=== PATIENT | male | born 1970 | race Caucasian/White ===

== ENCOUNTER → 2017-09-01 | Outpatient (CLI) | payer OTHER ==
[~2017-09-01] MED LIST: HYDR-971 PO
--- NOTE | 2017-09-01 17:31 | RAD ---
Ultrasound testicles INDICATION: Left testicular pain TECHNIQUE: Grayscale, color Doppler and spectral waveform ultrasound images of the bilateral testicles. COMPARISON: None FINDINGS: The right testicle measures 2.8 x 1.9 x 3.9 cm and is normal in echogenicity without focal lesion. Evidence of blood flow in the right testicle on Doppler interrogation. The right epididymis is mildly enlarged measuring 1.5 cm. Small right hydrocele. The left testicle measures 2.5 x 1.9 x 3.3 cm and is normal in echogenicity without focal lesion. Blood flow is seen in the left testicle on Doppler interrogation. The left epididymal head measures 1 cm and is within normal limits. IMPRESSION: 1. No testicular focal lesion. 2. Blood flow demonstrated to both testicles. 3. Small right hydrocele. Electronically signed by: Conrad Asencio DO (09/01/2017 5:28 PM) [facility]
== END | disposition home or self-care (01) ==
LOC: US 16:33
DX: N50.812 Left testicular pain (principal); N43.3 Hydrocele, unspecified
CPT/HCPCS: 76870

== ENCOUNTER 2017-10-05 14:34 | Emergency (ER) | payer OTHER, BC ==
[~2017-10-05] VITALS: Ht 172.7 cm; Wt 62.1 kg
[2017-10-05] MEDS ORDERED: oxyCODONE/APAP 5/325 1 TAB TABLET PO ONE (15:15)
[2017-10-05 15:19] LABS: BILIRUBIN,URINE SMALL (NEG); GLUCOSE,URINE NEGATIVE (NEG); NITRITE,URINE NEGATIVE (NEG); PROTEIN,URINE NEGATIVE (NEG-TRACE)
[2017-10-05 15:30] LABS: BACTERIA,URINE 0 /HPF (0-FEW); RBC,URINE 0 /HPF (0-2); WBC,URINE 0 /HPF (0-4)
[2017-10-05] MEDS: KETOROLAC 60 MG/2 ML INJ. IM ONE ×2 (15:41→15:45)
--- NOTE | 2017-10-05 15:55 | RAD ---
CT of the abdomen and pelvis without contrast 10/05/2017 Indication: Left flank and left groin pain. Comparison study: None Technique: Multidetector CT imaging of the abdomen and pelvis was performed without the administration of IV contrast Findings: Visualized lung bases are unremarkable. The liver, gallbladder, spleen, adrenal glands, and pancreas have an unremarkable noncontrast enhanced appearance. The bilateral kidneys have a grossly unremarkable noncontrast enhanced appearance without evidence of hydronephrosis, nephrolithiasis, or acute obstructive uropathy. The ureters are unremarkable in course and caliber without evidence of ureteral stone. The bladder is predominantly decompressed. No pneumoperitoneum or significant free pelvic fluid is identified. There is no evidence of bowel obstruction. No evidence of acute inflammatory change involving the bowel is identified. No inguinal hernia is identified. The appendix is grossly unremarkable in appearance. No evidence of acute osseous abnormality. Impression: No evidence of acute intra-abdominal abnormality PQRS Compliance Statement: One or more of the following individualized dose reduction techniques were utilized for this examination: 1. Automated exposure control 2. Adjustment of the mA and/or kV according to patient size 3. Use of iterative reconstruction technique
--- NOTE | 2017-10-05 16:01 | RAD ---
Scrotal ultrasound 10/05/2017 Clinical history: Left scrotal pain. Technique: Using a combination of real-time ultrasound imaging and color-flow and pulse Doppler imaging techniques, duplex evaluation of the scrotal sac and its contents was performed. Multiple images were obtained. Findings: Both testicles are within normal limits in size and echogenicity. The right testicle measures 3.9 x 2.5 x 1.7 cm in longitudinal, transverse, and AP dimensions. The left testicle measures 3.7 x 2.6 x 1.5 cm in size. Normal color flow and pulse Doppler imaging to both testicles is seen. Both epididymal heads are within normal limits in size and echogenicity. There is a small right hydrocele. No varicocele is seen. Impression: Small right hydrocele. Otherwise negative study.
[2017-10-05 16:08] VITALS: BP 149/80
--- NOTE | 2017-10-05 16:40 | PHYS DOC ---
Past Medical History Past Medical History: Other Additional Past Medical Histor: recent epiditimits Past Surgical History: No Surgical History Additional Information: 1 ppd Alcohol Use: Occasionally Drug Use: None Adult General Chief Complaint Chief Complaint: TESTICULAR PAIN OR INJURY [facility] Patient is a 46 year old male presenting to the emergency department for evaluation of left testicle pain that hit him suddenly while he was at work. He says it is a sharp pain and can radiate towards his but ox and lower left back that he has no weakness numbness tingling bowel or bladder incontinence. Patient says he had the same exact pain one month ago and was diagnosed with epididymitis and was put on antibiotics for a short period time. He does not remember which antibiotic he was on. He says that he is sexually active but he only has one partner. He denies any fevers chills nausea vomiting or other systemic symptoms. Review of Systems Review of Systems Constitutional: Denies fever or chills [] Cardiovascular: No additional information not addressed in [facility] [] GI: Denies abdominal pain, nausea, vomiting, bloody stools or diarrhea [] : Denies dysuria or hematuria [] Musculoskeletal: + back pain. No joint pain [] Integument: Denies rash or skin lesions [] Neurologic: Denies headache, focal weakness or sensory changes [] All other systems were reviewed and found to be within normal limits, except as documented in this note. Current Medications Current Medications Current Medications Medications (Trade) Dose Ordered Sig/[facility] Start Time Stop Time Status Last Admin Dose Admin Ketorolac Tromethamine (Toradol Im) 60 mg 1X ONCE 10/05/17 15:15 10/05/17 15:16 DC 10/05/17 15:45 60 MG Oxycodone/ Acetaminophen (Percocet 5/325) 2 tab 1X ONCE 10/05/17 15:15 10/05/17 15:16 DC Allergies Allergies Allergies Coded Allergies Type Severity Reaction Last Updated Verified No Known Allergies Allergy Unknown 10/05/17 Yes Physical Exam Physical Exam Constitutional: Well developed, well nourished, no acute distress, non-toxic appearance. [] Cardiovascular:Heart rate regular rhythm, no murmur [] Lungs & Thorax: Bilateral breath sounds clear to auscultation [] Abdomen: Bowel sounds normal, soft, no tenderness, no masses, no pulsatile masses. exam reveals left testicle tenderness to palpation with no obvious swelling. No obvious hernia palpated. Skin: Warm, dry, no erythema, no rash. [] Back: No tenderness, no CVA tenderness. [] Extremities: No tenderness, no cyanosis, no clubbing, ROM intact, no edema. [] Current Patient Data Vital Signs Vital Signs Date Time Temp Pulse Resp B/P (MAP) Pulse Ox O2 Delivery O2 Flow Rate FiO2 10/05/17 16:08 46 20 149/80 (103) 98 Room Air 10/05/17 14:48 98.0 98.0 Lab Values Laboratory Tests Test 10/05/17 15:13 Urine Collection Type Unknown Urine Color Yellow Urine Clarity Turbid Urine pH 6.0 Urine Specific [place] >=1.030 Urine Protein Negative mg/dL (NEG-TRACE) Urine Glucose (UA) Negative mg/dL (NEG) Urine Ketones (Stick) Negative mg/dL (NEG) Urine Blood Negative (NEG) Urine Nitrite Negative (NEG) Urine Bilirubin Small (NEG) Urine Urobilinogen Dipstick 1.0 mg/dL (0.2 mg/dL) Urine Leukocyte Esterase Negative (NEG) Urine RBC 0 /HPF (0-2) Urine WBC 0 /HPF (0-4) Urine Bacteria 0 /HPF (0-FEW) Urine Mucus Marked /LPF EKG EKG [] Radiology/Procedures Radiology/Procedures CT of the abdomen and pelvis without contrast 10/05/2017 Indication: Left flank and left groin pain. Comparison study: None Technique: Multidetector CT imaging of the abdomen and pelvis was performed without the administration of IV contrast Findings: Visualized lung bases are unremarkable. The liver, gallbladder, spleen, adrenal glands, and pancreas have an unremarkable noncontrast enhanced appearance. The bilateral kidneys have a grossly unremarkable noncontrast enhanced appearance without evidence of hydronephrosis, nephrolithiasis, or acute obstructive uropathy. The ureters are unremarkable in course and caliber without evidence of ureteral stone. The bladder is predominantly decompressed. No pneumoperitoneum or significant free pelvic fluid is identified. There is no evidence of bowel obstruction. No evidence of acute inflammatory change involving the bowel is identified. No inguinal hernia is identified. The appendix is grossly unremarkable in appearance. No evidence of acute osseous abnormality. Impression: No evidence of acute intra-abdominal abnormality PQRS Compliance Statement: One or more of the following individualized dose reduction techniques were utilized for this examination: 1. Automated exposure control 2. Adjustment of the mA and/or kV according to patient size 3. Use of iterative reconstruction technique DICTATED and SIGNED BY: PAXTON REARDON MD DATE: 10/05/171543 Scrotal ultrasound 10/05/2017 Clinical history: Left scrotal pain. Technique: Using a combination of real-time ultrasound imaging and color-flow and pulse Doppler imaging techniques, duplex evaluation of the scrotal sac and its contents was performed. Multiple images were obtained. Findings: Both testicles are within normal limits in size and echogenicity. The right testicle measures 3.9 x 2.5 x 1.7 cm in longitudinal, transverse, and AP dimensions. The left testicle measures 3.7 x 2.6 x 1.5 cm in size. Normal color flow and pulse Doppler imaging to both testicles is seen. Both epididymal heads are within normal limits in size and echogenicity. There is a small right hydrocele. No varicocele is seen. Impression: Small right hydrocele. Otherwise negative study. DICTATED and SIGNED BY: GINNA KHAN MD DATE: 10/05/17 4475 Course & Med Decision Making Course & Med Decision Making Intermittent torsion is a consideration however he has completely normal workup and he is essentially pain-free. Patient will be discharged with instructions to take ibuprofen for pain and [place] for breakthrough pain and follow with the urologist as soon as possible. Patient aware and agreeable with plan for discharge and verbalized understanding of the need for short-term follow-up in the strict ED return precautions discussed including worsening pain fevers vomiting or other general concerns. Dragon Disclaimer Dragon Disclaimer This electronic medical record was generated, in whole or in part, using a voice recognition dictation system. Departure Departure Impression: Primary Impression: Testicle pain Disposition: HOME, SELF-CARE Condition: STABLE Referrals: NO PCP (PCP) Patient Instructions: Testicular Problems and Self-Exam Additional Instructions: TAKE 400MG OF IBUPROFEN EVERY 6 HOURS FOR PAIN AND THE NORCO FOR BREAKTHROUGH PAIN. FOLLOW WITH A UROLOGIST SOON YOU CAN. [facility] IS WHO WILL BE TAKING OVER HERE ON OCT 17. Scripts Hydrocodone/Apap 5-325 (NORCO 5-325 TABLET) 1 Each Tablet 1 TAB PO PRN Q6HRS Y for PAIN, #14 TAB 0 Refills Prov: BING DOMÍNGUEZ DO 10/05/17 BING DOMÍNGUEZ DO Oct 05, 2017 16:40
[2017-10-05] MEDS ORDERED: HYDR-971 PO (17:29)
== END 2017-10-05 17:34 | disposition home or self-care (01) ==
LOC: ER 14:34
DX: N50.812 Left testicular pain (principal); M54.5 Low back pain; N43.3 Hydrocele, unspecified; F17.210 Nicotine dependence, cigarettes, uncomplicated
CPT/HCPCS: 74176; 76870; 81001; 87491; 87591; 96372; 99285; J1885

== ENCOUNTER 2020-12-29 21:45 | Emergency (ER) | payer SELFPAY ==
[~2020-12-29] VITALS: Ht 177.8 cm; Wt 77.3 kg
[~2020-12-29 21:45] MED LIST changes: +HYDR-3164 PO; -HYDR-971 PO
--- NOTE | 2020-12-29 22:23 | PHYS DOC ---
Past Medical History Past Medical History: Hypertension, Other Additional Past Medical Histor: recent epiditimits Past Surgical History: No Surgical History Smoking Status: Current Every Day Smoker Alcohol Use: Occasionally Drug Use: None General Adult EDM: Chief Complaint: FOOT INJURY PAIN HPI: HPI: Patient is a 50 year old male with past medical history of hypertension presents for right forefoot numbness and pain. Patient reports that for the past 5 days he has constant numbness and dull ache of the right toes to the middle of his foot. Patient denies any recent trauma or triggers for the symptoms. He reports that the pain made it difficult for him to walk at work. Patient denies any history of neuropathy or diabetes. He is pain numbness does not go past the middle of the foot. And the pain was 6-7 out of 10 in severity. Patient tried [id number] medication like ibuprofen but with minimal relief. She reports that physical activity will aggravate the pain. Patient denies any associated symptoms. Patient denies fever chills, chest pain, shortness of breath, abdominal pain, constipation or diarrhea, or change in urination. Patient is the historian. Review of Systems: Review of Systems: Review of systems: Constitutional symptoms- No fever, no chills. Eyes- No Discharge, No Visual Loss Respiratory symptoms- No shortness of breath, No wheezing, No Dyspnea on Exertion Cardiovascular Systems; No chest pain, No Palpitations, No syncope Gastrointestinal symptoms: NO abdominal pain, no nausea, no vomiting or diarrhea. Genitourinary symptoms: No dysuria. Musculoskeletal symptoms: Right sided forefoot pain and numbness. NEUROLOGICAL Symptoms: No headache, no generalized weakness; No focal Weakness Heart Score: C/O Chest Pain: No Risk Factors: Risk Factors: DM, Current or recent (<one month) smoker, HTN, HLP, family history of CAD, obesity. Risk Scores: Score 0 - 3: 2.5% MACE over next 6 weeks - Discharge Home Score 4 - 6: 20.3% MACE over next 6 weeks - Admit for Clinical Observation Score 7 - 10: 72.7% MACE over next 6 weeks - Early Invasive Strategies Allergies: Allergies: Allergies Coded Allergies Type Severity Reaction Last Updated Verified No Known Allergies Allergy Unknown 10/05/17 Yes Physical Exam: PE: General: alert, no acute distress. Skin: warm, dry and intact. Head:: Normocephalic, atraumatic. Neck: Trachea midline. Eyes: EOMI, Normal conjunctiva, No drainage CARDIOVASCULAR: Regular rate and rhythm RESPIRATORY: No respiratory distress Back: Full range of motion. MUSCULOSKELETAL: No increasing pain with palpation or passive physical maneuvers of the right foot. GASTROINTESTINAL: Abdomen soft without rebound or guarding. NEUROLOGICAL: Alert and noted to person, place and time. No neurological deficits observed. No loss of sensations in lower extremity bilaterally, extremity strength 5 out of 5 bilaterally. Psychiatric: Cooperative. Normal judgment Current Patient Data: Vital Signs: Vital Signs Date Time Temp Pulse Resp B/P (MAP) Pulse Ox O2 Delivery O2 Flow Rate FiO2 12/29/20 21:55 97.3 87 18 157/90 (112) 96 Room Air 97.3 EKG: EKG: [] Radiology/Procedures: Radiology/Procedures: [] Impression: FINDINGS: Bone mineralization is normal. No acute or healed fractures. Soft tissues are unremarkable. Joint spaces are well-maintained. IMPRESSION: No acute osseous abnormality. Course & Med Decision Making: Course & Med Decision Making Pertinent Labs and Imaging studies reviewed. (See chart for details) [] Patient was evaluated for chief complaint. Work-up consisted of radiologic imaging. Wet read x-ray no acute fractures. Patient's right lower extremity neurovascularly, full range of motion, no swelling no deformities noted. Based upon history of present illness and physical exam no other emergency department work-up performed. Patient concerned symptoms started when he stopped taking his blood pressure medication. Patient is unsure of what blood pressure medication he was previously taking. During my exam patient's blood pressure was 150 systolic. At this time I feel the patient is safe for discharge. Patient unsure what blood pressure medicine he was on I will discharge patient home on hydrochlorothiazide. Dragon Disclaimer: Oscar Disclaimer: This electronic medical record was generated, in whole or in part, using a voice recognition dictation system. Departure Departure Impression: Primary Impression: Paresthesia of foot Additional Impression: Hypertension Disposition: 01 DC HOME SELF CARE/HOMELESS Condition: STABLE Referrals: NO PCP (PCP) Patient Instructions: Hypertension, Paresthesia Scripts Hydrochlorothiazide (HYDROCHLOROTHIAZIDE TABLET) 12.5 Mg Tablet 12.5 MG PO DAILY for DIURETIC, #30 TAB 0 Refills Prov: TENNILLE ALVAREZ I DO 12/29/20 TENNILLE ALVAREZ I DO Dec 29, 2020 22:23
--- NOTE | 2020-12-29 22:48 | RAD ---
Exam: Right foot 3 views INDICATION: Right foot pain, numbness TECHNIQUE: Frontal, lateral and oblique views of the right foot Comparisons: None FINDINGS: Bone mineralization is normal. No acute or healed fractures. Soft tissues are unremarkable. Joint spa jamel are well-maintained. IMPRESSION: No acute osseous abnormality. Electronically signed by: Junior Gould MD (12/29/2020 10:46 PM) [facility]
[2020-12-29] MEDS ORDERED: HYDR12.58 PO (22:56)
[2020-12-29 23:00] VITALS: BP 148/86
== END 2020-12-29 23:00 | disposition home or self-care (01) ==
LOC: ER 21:45
DX: R20.2 Paresthesia of skin (principal); M79.671 Pain in right foot; I10 Essential (primary) hypertension; F17.200 Nicotine dependence, unspecified, uncomplicated
CPT/HCPCS: 73630; 99283

== ENCOUNTER 2021-12-08 17:14 | Emergency (ER) | payer SELFPAY ==
[~2021-12-08] VITALS: Ht 172.7 cm; Wt 81.0 kg
[~2021-12-08 17:14] MED LIST changes: +HYDR12.58 PO
[2021-12-08] MEDS ORDERED: ONDANSETRON PF 4 MG/2 ML VIAL. IVP ONE (17:45)
[2021-12-08] MEDS ORDERED: THIAMINE IV ONE (18:00)
[2021-12-08] MEDS ORDERED: RINGERS LACTATED IV ONE (18:00)
[2021-12-08 18:03] LABS: BASO % 0 % (0-3); EOS % 0 % (0-3); HEMATOCRIT 42.3 % (39.0-53.0); HEMOGLOBIN 14.4 g/dL (13.0-17.5); LYMPH # 0.8 x10^3/uL (1.0-4.8); LYMPH % 5 % (24-48); MEAN CORPUSCULAR HEMOGLOBIN 38 pg (25-35); MEAN CORPUSCULAR HGB CONC 34 g/dL (31-37); MEAN CORPUSCULAR VOLUME 111 fL (79-100); MONO # 0.9 x10^3/uL (0.0-1.1); MONO % 6 % (0-9); NEUT # 13.3 x10^3/uL (1.8-7.7); NEUT % 88 % (31-73); PLATELET COUNT 200 x10^3/uL (140-400); RED BLOOD COUNT 3.82 x10^6/uL (4.30-5.70); RED CELL DISTRIBUTION WIDTH 15.9 % (11.5-14.5); WHITE BLOOD COUNT 15.1 x10^3/uL (4.0-11.0)
[2021-12-08 18:10] LABS: CALCIUM 8.8 mg/dL (8.5-10.1); CREATININE 2.8 mg/dL (0.7-1.3); GFR 24.2; POTASSIUM 3.4 mmol/L (3.5-5.1)
[2021-12-08 18:17] LABS: ALBUMIN 3.7 g/dL (3.4-5.0); ALBUMIN/GLOBULIN RATIO 0.9 (1.0-1.7); TOTAL BILIRUBIN 4.3 mg/dL (0.2-1.0); TOTAL PROTEIN 7.7 g/dL (6.4-8.2)
[2021-12-08] MEDS: FOLIC ACID 1 MG TABLET. PO SCH ×2 (18:30→19:44)
[2021-12-08] MEDS ORDERED: CHLO25CA9 PO (18:58)
[2021-12-08] MEDS ORDERED: chlordiazePOXIDE HCL 25 MG CAPSULE PO ONE (19:15)
--- NOTE | 2021-12-08 19:27 | PHYS DOC ---
Past Medical History Past Medical History: Hypertension, Other Additional Past Medical Histor: recent epiditimits Past Surgical History: No Surgical History Smoking Status: Current Every Day Smoker Alcohol Use: Heavy Drug Use: None General Adult EDM: Chief Complaint: WITHDRAWL HPI: HPI: Patient is a 51 year old male who presents via EMS with complaint of seizure- like activity. Patient states he drinks a pint and a half of whiskey daily, however did not have any alcohol yesterday. Today, he had "3 mini shooters." Patient states he had to "episodes" that he describes as his "body convulsing." Patient was completely self-aware during these episodes and did not have any period of confusion afterward. Patient has no history of epilepsy or other seizure disorder. He reports associated nausea and vomiting today. He denies any visual, auditory or tactile hallucinations. Patient denies suicidal ideation, homicidal ideation. He does wish to quit drinking. Review of Systems: Review of Systems: Constitutional: Denies fever, chills or generalized weakness Eyes: Denies change in visual acuity, visual field deficits or discharge HENT: Denies ear pain, nasal congestion or sore throat Respiratory: Denies cough or shortness of breath Cardiovascular: Denies chest pain, palpitations or edema GI: See HPI : Denies dysuria or hematuria Musculoskeletal: Denies back pain or joint pain Integument: Denies rash or other skin lesion Neurologic: See HPI Heart Score: C/O Chest Pain: No Current Medications: Current Medications Medications (Trade) Dose Ordered Sig/Blanca Route PRN Reason Start Time Stop Time Status Last Admin Dose Admin Thiamine HCl 500 mg/Ringer's Solution 1,005 ml @ 102 mls/hr 1X ONCE IV 12/08/21 18:00 12/09/21 03:51 12/08/21 18:15 102 MLS/HR Ondansetron HCl (Zofran) 4 mg 1X ONCE IVP 12/08/21 17:45 12/08/21 17:46 DC 12/08/21 18:15 4 MG Allergies: Allergies: Allergies Coded Allergies Type Severity Reaction Last Updated Verified No Known Allergies Allergy Unknown 12/08/21 Yes Physical Exam: PE: Constitutional: Well developed, well nourished, no acute distress, non-toxic appearance, patient is disheveled and smells of stale cigarettes. HENT: Normocephalic, atraumatic, bilateral external ears normal, oropharynx moist, no oral exudates, no intraoral lesions, nose normal. Eyes: PERRLA, EOMI, conjunctiva normal, no discharge. Neck: Normal range of motion, no stridor. Abdomen: Bowel sounds normal, soft, diffuse tenderness, no masses, no pulsatile masses. Skin: Warm, dry, no erythema, no rash. Extremities: No tenderness, no cyanosis, no clubbing, ROM intact, no edema. Neurologic: Alert and oriented x4, no focal deficits noted. Current Patient Data: Labs: Laboratory Tests Test 12/08/21 17:25 White Blood Count 15.1 x10^3/uL (4.0-11.0) H Red Blood Count 3.82 x10^6/uL (4.30-5.70) L Hemoglobin 14.4 g/dL (13.0-17.5) Hematocrit 42.3 % (39.0-53.0) Mean Corpuscular Volume 111 fL (79-100) H Mean Corpuscular Hemoglobin 38 pg (25-35) H Mean Corpuscular Hemoglobin Concent 34 g/dL (31-37) Red Cell Distribution Width 15.9 % (11.5-14.5) H Platelet Count 200 x10^3/uL (140-400) Neutrophils (%) (Auto) 88 % (31-73) H Lymphocytes (%) (Auto) 5 % (24-48) L Monocytes (%) (Auto) 6 % (0-9) Eosinophils (%) (Auto) 0 % (0-3) Basophils (%) (Auto) 0 % (0-3) Neutrophils # (Auto) 13.3 x10^3/uL (1.8-7.7) H Lymphocytes # (Auto) 0.8 x10^3/uL (1.0-4.8) L Monocytes # (Auto) 0.9 x10^3/uL (0.0-1.1) Eosinophils # (Auto) 0.0 x10^3/uL (0.0-0.7) Basophils # (Auto) 0.0 x10^3/uL (0.0-0.2) Platelet Estimate Pending Sodium Level 133 mmol/L (136-145) L Potassium Level 3.4 mmol/L (3.5-5.1) L Chloride Level 80 mmol/L (98-107) L Carbon Dioxide Level 15 mmol/L (21-32) L Anion Gap 38 (6-14) H Blood Urea Nitrogen 20 mg/dL (8-26) Creatinine 2.8 mg/dL (0.7-1.3) H Estimated GFR (Cockcroft-Gault) 24.2 BUN/Creatinine Ratio 7 (6-20) Glucose Level 129 mg/dL (70-99) H Calcium Level 8.8 mg/dL (8.5-10.1) Total Bilirubin 4.3 mg/dL (0.2-1.0) H Aspartate Amino Transferase (AST) 536 U/L (15-37) H Alanine Aminotransferase (ALT) 249 U/L (16-63) H Alkaline Phosphatase 137 U/L (46-116) H Total Protein 7.7 g/dL (6.4-8.2) Albumin 3.7 g/dL (3.4-5.0) Albumin/Globulin Ratio 0.9 (1.0-1.7) L Lipase 2256 U/L (73-393) H Ethyl Alcohol Level 203 mg/dL (0-10) H Laboratory Tests 12/08/21 17:25 Laboratory Tests 12/08/21 17:25 Vital Signs: Vital Signs Date Time Temp Pulse Resp B/P (MAP) Pulse Ox O2 Delivery O2 Flow Rate FiO2 12/08/21 17:28 98.1 85 16 99/63 (75) 95 Room Air 98.1 Course & Med Decision Making: Course & Med Decision Making Pertinent Labs and Imaging studies reviewed. (See chart for details) Patient is a 51-year-old male with history of alcoholism who presents today with seizure-like activity. Patient had a witnessed episode en route to the emergency department; EMS reports this was not an epileptic seizure. Patient has not experienced postictal period or any sense of disorientation. He is also completely self-aware during these episodes. Patient does report abdominal pain, nausea and vomiting. Work-up today will include labs and urinalysis. Patient provided with IV fluid administration, IV thiamine and folate p.o. Discussed evaluation by PAT with the patient. He does wish to discuss rehab options and resources. Odilia with PAT visited patient here in the emergency department. She has obtained placement for him in an inpatient detox facility, [facility] (adult detox unit) through [facility]. The facility is requesting that he receive a first dose of a Librium taper here in the emergency department. Patient's questions were answered. He is stable and medically cleared for discharge to inpatient rehab facility. Prior to departure from the emergency department, patient had not provided urine sample. I verified with Odilia that the facility did not require a drug screen, which she confirmed. Oscar Disclaimer: Oscar Disclaimer: This electronic medical record was generated, in whole or in part, using a voice recognition dictation system. Departure Departure Impression: Primary Impression: ETOHism Additional Impressions: Alcohol-induced pancreatitis Qualified Codes: K85.20 - Alcohol induced acute pancreatitis without necrosis or infection Alcohol dependence with withdrawal, uncomplicated Disposition: 62 INPATIENT REHAB FACILITY Condition: STABLE Referrals: NO PCP (PCP) Patient Instructions: Alcohol Withdrawal, [id number] Additional Instructions: EMERGENCY DEPARTMENT GENERAL DISCHARGE INSTRUCTIONS Thank you for coming to Emergency Department (ED) today and trusting us with you care. We trust that you had a positive expe rience in our Emergency Department. If you wish to speak to the department management, you may call the director at . YOUR FOLLOW UP INSTRUCTIONS ARE FOLLOWS: 1. Follow up with your primary care doctor. If you do not have a primary doctor, please ask for a resource list of physicians or clinics that may be able to assist you with follow up care. 2. The emergency provider has interpreted your imaging studies, if any were ordered. The radiology imaging services director also reviewed them. If there is a change in the findings, you will be notified in 48 hours when at all possible. 3. If a lab test or culture has been done, your results will be reviewed and you will be notified if you need a change in treatment. 4. Follow instructions verbalized to you and refer to the printouts if needed. ADDITIONAL INSTRUCTIONS AND INFORMATION: 1. Your care today has been supervised by a physician who is specially trained in emergency care. Many problems require more than one evaluation for a complete diagnosis and treatment. We recommend that you schedule your follow up appointment as recommended to ensure complete treatment of you illness or injury. If you are unable to obtain follow up care and continue to have a problem, or if your condition worsens, we recommend that you return to the ED. 2. We are not able to safely determine your condition over the phone nor are we able to give sound medical advice over the phone. For these safety reasons, if you call for medical advice we will ask you to come to the ED for further evaluation. 3. If you have any questions regarding these discharge instructions please call the ED at . SAFETY INFORMATION: In the interest of safety, wellness, and injury prevention; we encourage you to wear your seat belt, if you smoke; quite smoking, and we encourage family to use a protective helmet for bicycling and other sporting events that present an increased risk for head injury. IF YOUR SYMPTOMS WORSEN OR NEW SYMPTOMS DEVELOP, OR YOU HAVE CONCERNS ABOUT YOUR CONDITION; OR IF YOUR CONDITION WORSENS WHILE YOU ARE WAITING FOR YOUR FOLLOW UP APPOINTMENT; EITHER CONTACT YOUR PRIMARY CARE DOCTOR, THE PHYSICIAN WHOSE NAME AND NUMBER YOU WERE GIVEN, OR RETURN TO THE ED IMMEDIATELY. Scripts Chlordiazepoxide Hcl (CHLORDIAZEPOXIDE HCL) 25 Mg Capsule 25 MG PO UD for 4 Days, #10 CAP Take 4 capsules by mouth on day 1. Take 3 capsules by mouth on day 2. Take 2 capsules by mouth on day 3. On final day, take 1 capsule by mouth. Prov: CANDACE DAWN 12/08/21 CANDACE DAWN Dec 08, 2021 19:27
[2021-12-08 19:33] LABS: % BANDS 1 % (0-9); % LYMPHS 7 % (24-48); % MONOS 5 % (0-10); % SEGS 87 % (35-66); PLT ESTIMATE ADEQUATE (ADEQUATE)
[2021-12-08 19:34] LABS: HYPOCHROMIA SLIGHT; POLYCHROMASIA SLIGHT
[2021-12-08 19:38] LABS: TOXIC GRANULATION SLIGHT
[2021-12-08 19:42] LABS: PAPPENHEIMER BODIES FEW
[2021-12-08 20:00] VITALS: BP 115/59
== END 2021-12-08 20:46 ==
LOC: ER 17:14
DX: K85.20 Alcohol induced acute pancreatitis without necrosis or infection (principal); F10.20 Alcohol dependence, uncomplicated; Y90.7 Blood alcohol level of 200-239 mg/100 ml; I10 Essential (primary) hypertension; F17.200 Nicotine dependence, unspecified, uncomplicated
CPT/HCPCS: 36415; 80053; 83690; 85007; 85025; 96365; 96366; 96375; 99285; G0480; J2405; J3411; J7120